=== PATIENT | male | born 1960 | race Caucasian/White ===

== ENCOUNTER 2021-01-12 08:30 | Outpatient (RCR) | payer OTHER, SELFPAY ==
[2020-10-25 11:48] VITALS: BP 142/74; PULSE 59; O2SAT 99
[2020-10-25 12:18] VITALS: PULSE 54
--- NOTE | 2020-11-10 07:54 | PCCPR ---
Received release for Eliezer to return to rehab after liver ablation, however, his father last night and he will be absent this week. Plans to return next week.
--- NOTE | 2020-11-15 08:20 | PCCPR ---
Patient called to cancel for the week as he's in [place] handling his father's and affairs. Patient states he'll resume his sessions the following week.
--- NOTE | 2020-11-25 07:53 | PCCPR ---
Eliezer absent today, not feeling well.
--- NOTE | 2021-01-13 07:44 | PCCPR ---
Addendum entered by Betty Telles RN 01/17/21 08:09: Mingo went to ED after his last visit. Found to have cellulitis and a new ulcer. He was sent home on oral antibiotics. He has an apt with his Phone Representative on 01/19/21 and will update us if he will be able to return during this process. Original Note: Absent due to hospitalization Mingo's called this AM states he is in the hospital. No reason given.
--- NOTE | 2021-01-20 11:29 | PCCPR ---
Spoke with Mingo today, he stated that he will be no weight bearing for next two weeks and unable to exercise. Mingo stated that he would like to finish his sessions but unsure when he will be able to exercise again. Placed on hold for now and will follow up in three weeks.
--- NOTE | 2021-01-31 09:22 | PCCPR ---
Hospitalized called this am to let us know Mingo is back in the hospital for cellulitis. States he was home briefly. Explained we have him on hold so once released per his MD to return we can re assign a new class time.
--- NOTE | 2021-02-17 11:47 | PCCPR ---
Spoke with Mingo, he is still [facility]. Seeing his nematologist weekly in regards to the cellulitis and wounds on his foot. He is unsure on a return date but will keep us posted.
== END 2021-01-12 23:59 | disposition home or self-care (01) ==
LOC: ANHCPREHAB 08:30
PROVIDERS: PCP Family Medicine
DX: Z95.5 Presence of coronary angioplasty implant and graft (principal)
CPT/HCPCS: 93798

== ENCOUNTER 2021-01-12 13:59 | Observation (INO) | payer OTHER, SELFPAY ==
--- NOTE | ~2021-01-12 | US_ITS ---
EXAMINATION: US venous doppler [facility] DATE: 01/12/2021 14:39 INDICATION: Left lower limb swelling. TECHNIQUE: Grayscale ultrasound images without and with compression and Doppler ultrasound images of the left lower extremity veins were obtained. COMPARISON: None. FINDINGS: The visualized portions of left common femoral vein, profunda (deep) femoral vein, femoral vein, popl iteal vein, peroneal veins, posterior tibial veins, and greater saphenous vein outflow are patent. IMPRESSION: 1. No deep venous thrombosis. Reviewed, dictated and finalized at location A.
--- NOTE | ~2021-01-12 | XR_ITS ---
XR ankle LT min 3V, XR foot LT min 3V 01/12/2021 16:01 Indication: Left foot and ankle pain and swelling Procedure: 4 views left ankle and 4 views left foot Comparison: 06/30/2016 Findings: There are surgical changes in the first metatarsal and the lateral aspect of the calcaneus. Status post amputation of the second toe at the MTP joint. Severe osteoarthritis of the first MTP michele int with hallux valgus. There are degenerative calcaneal enthesophytes. There is extensive arterial c alcification. Impression: 1: No acute bone or joint abnormality. Reviewed, dictated and finalized at location A. Impression: 1: No acute bone or joint abnormality. Impression: 1: No acute bone or joint abnormality.
[2021-01-12 14:16] VITALS: BP 151/84; PULSE 77; RESP 16; TEMP 36.8; O2SAT 99
[2021-01-12 14:45] LABS: Basophils Percent Auto 0.4 % (0.2-1.2); Eosinophils Absolute Auto 0.1 K/mm3 (0-0.3); Eosinophils Percent Auto 1.7 % (0-4.4); Hematocrit 35.6 % (42.0-52.0); Hemoglobin 11.8 g/dL (14.0-18.0); Immature Granulocyte Absolute 0.01 K/mm3 (0.00-0.031); Immature Granulocyte Percent A 0.2 % (0-0.5); Immature Platelet Fraction Pct 7.1 % (0.9-11.2); Mean Corpuscular HGB Conc 33.1 g/dl (32-36); Mean Corpuscular Hemoglobin 30.2 pg (26-34); Mean Platelet Volume 11.6 fl (7.4-10.4); Monocytes Absolute Auto 0.5 K/mm3 (0.1-0.6); Monocytes Percent Auto 9.5 % (2.6-8.5); Neutrophils Percent Auto 75.2 % (45.5-73.1); Platelet Count Result 115 k/mm3 (150-375); Red Blood Count 3.91 M/mm3 (4.6-6.20); Red Cell Distribution Width 12.8 % (11.5-14.5); White Blood Count 5.4 K/mm3 (4.5-10.0)
[2021-01-12 14:57] LABS: Alanine Aminotransferase 21 U/L (4-50); Albumin Level 3.8 g/dL (3.5-5.1); Alkaline Phosphatase 91 U/L (38-126); Anion Gap 5 mmol/L (8-16); Aspartate Amino Transferase 28 U/L (17-59); Bilirubin,Total 0.6 mg/dL (0.2-1.3); Blood Urea Nitrogen 15 mg/dL (9-20); Calcium 8.9 mg/dL (8.4-10.2); Carbon Dioxide 27 mmol/L (22-30); Chloride 100 mmol/L (98-107); Estimated CRCL calculation 73 ml/min; Estimated Glomerular Filt Rate > 60; Glucose 106 mg/dL (65-110); Potassium 4.4 mmol/L (3.4-5.0); Sodium 132 mmol/L (137-145)
--- NOTE | 2021-01-12 15:14 | ED.SKABFB ---
HPI - Skin/Abscess/Foreign Bdy General Chief complaint: Skin/Abscess/Foreign Body Stated complaint: Redness and swelling LLle Time Seen by Provider: 01/12/21 15:12 Source: patient Mode of arrival: ambulatory Limitations: no limitations History of Present Illness HPI narrative: Patient is a 60-year-old male with a history of peripheral arterial disease, type 2 diabetes, hypertension, who presents for evaluation of rash and throbbing pain to the left lower extremity. Patient states that he noticed a small area of redness near his left foot this morning, which has progressed to a larger area of redness and warmth overlying the ankle. Patient is able to move the joint and does not endorse much pain but also states that he has a history of neuropathy and does not have good sensation in his lower extremity. He does have a history of chronic toe ulcers that are being monitored by wound care. Patient did go to cardiac rehabilitation today where he was able to complete his treatment. Patient denies any fever, chills, nausea or vomiting. No recent fall or injury. He denies history of skin infection in the past. Related Data Home Medications Medication Instructions Recorded Confirmed aspirin 81 mg tablet,delayed 81 mg PO DAILY 09/30/20 09/30/20 release atorvastatin 80 mg tablet 80 mg PO DAILY 09/30/20 09/30/20 cholecalciferol (vitamin D3) 125 125 mcg PO DAILY 09/30/20 09/30/20 mcg (5,000 unit) capsule citalopram 10 mg tablet 10 mg PO DAILY 09/30/20 09/30/20 erythromycin with ethanol 2 % 1 applic TOPICAL BID 09/30/20 09/30/20 topical solution gabapentin 300 mg capsule 600 mg PO QID 09/30/20 09/30/20 ibuprofen 200 mg capsule 800 mg PO Q6H PRN 09/30/20 10/25/20 lactulose 10 gram/15 mL (15 mL) 10 g PO QAM 09/30/20 10/25/20 oral solution levothyroxine 25 mcg capsule 25 mcg PO DAILY 09/30/20 09/30/20 lisinopril 40 mg tablet 40 mg PO DAILY 09/30/20 09/30/20 metoprolol tartrate 25 mg tablet 25 mg PO BID 09/30/20 09/30/20 tramadol 50 mg tablet 50 mg PO Q6H PRN 09/30/20 09/30/20 cholecalciferol (vitamin D3) 125 mcg PO DAILY 10/25/20 10/25/20 pantoprazole 20 mg PO BID 10/25/20 10/25/20 tamsulosin 0.4 mg PO DAILY 10/25/20 10/25/20 Allergies Allergy/AdvReac Type Severity Reaction Status Date / Time No Known Allergies Allergy Verified 01/12/21 15:02 Review of Systems Review of Systems: CONSTITUTIONAL: Denies fever, chills, or sweats. EYES: Denies visual changes, redness, or discharge. ENT: Denies rhinorrhea, congestion, sore throat, or otalgia. CARDIOVASCULAR: Denies chest pain, palpitations, or edema. RESPIRATORY: Denies cough or dyspnea. GASTROINTESTINAL: Denies abdominal pain, nausea, vomiting, or diarrhea. GENITOURINARY: Denies dysuria or hematuria. SKIN: Reports redness to the left ankle, reports ulcerations to the left great toe, left fourth and fifth toes MUSCULOSKELETAL: Denies back pain, reports throbbing pain to the left ankle and foot NEUROLOGIC: Denies headache, numbness, or weakness. [facility] Past Medical History Medical History (Updated 01/12/21 @ 17:02 by Jenifer Suarez MD) Arthritis Diabetes Heart disease Hypertension Subjective tinnitus of both ears TIA (transient ischemic attack) Family History Family History (Reviewed 09/30/20 @ 08:38 by Kassandra Gilmore [facility]) Mother Alcoholism Cancer Hypertension Sibling Hypertension Grandparent Alcoholism Social History Social History Smoking status: Never smoker Alcohol intake: never Substance use: never Substance use type: does not use Exam Narrative: GENERAL: Awake, alert, conversant HEAD: Normocephalic, atraumatic. EYES: 2+ PERRLA and EOMI. ENT: Nares clear, no rhinorrhea or epistaxis. Mucous membranes moist. NECK: Supple. CHEST: No respiratory distress, breathing even and non labored HEART: Regular rate, sinus rhythm ABDOMEN:Non distended, non tender EXTREMITIES: Normal range of
[2021-01-12 16:45] LABS: CRP 1.6 mg/dL (<1.0)
--- NOTE | 2021-01-12 16:45 | PM.IMHP ---
H&P: HPI History of Present Illness Date/Time: 01/12/21 16:45 Chief Complaint: Redness and swelling of the left foot and leg. Narrative: This is a very pleasant 60-year-old male with history of coronary artery disease, type 2 diabetes, hypertension, hypothyroidism, cirrhosis, and hepatocellular carcinoma on liver transplant list at [facility] who presented to the emergency department earlier today via private vehicle for evaluation of redness and swelling of the left foot and leg. He follows with a local shipping and receiving coordinator for a wound in the left 4th and 5th toe webspaces as well as a pressure ulcer on the left 1st toe. This morning when he awoke he noticed that the 5th left toe was swollen and red with redness extending onto the dorsum of the foot and up the medial calf. He has significant neuropathy in the lower legs below the knees and thus has no discomfort. He denies fever, chills, sweats, nausea, and vomiting. He has no history of multidrug resistant organisms. Review of Systems Review of Systems: Twelve systems were reviewed with pertinent positives and negatives as per HPI. No fever, chills, or sweats. No recent cold or flu symptoms. He denies chest pain shortness of breath. No cough. No nausea, vomiting, or diarrhea. No dysuria. His most recent hemoglobin A1c was well within normal limits and he has been off of his diabetes medications losing 25 lb. Except as documented, all other systems were reviewed and are negative. [facility] Past Medical History Medical History (Updated 01/12/21 @ 23:09 by Shelbie Donovan PA-C) Arthritis Cirrhosis of liver Coronary artery disease Status post stent x1. Diet-controlled type 2 diabetes mellitus Hepatocellular carcinoma Status post radiofrequency ablation x3. On liver transplant list at [facility]. Hypertension Neuropathy Osteomyelitis Transient ischemic attack Surgical History Surgical History (Updated 01/12/21 @ 23:02 by Shelbie Donovan PA-C) Amputation of toe of left foot Left 2nd toe due to osteomyelitis. 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 Status post right foot surgery Multiple surgeries of the right foot related to osteomyelitis. Family History Family History Mother Alcoholism Cancer Hypertension Sibling Hypertension Grandparent Alcoholism Social History Social History (Updated 01/12/21 @ 23:03 by Shelbie Donovan PA-C) Social History: Surrogate decision maker: Augustine Corrales, significant other. Code status: Full code. Smoking status: Never smoker Second hand tobacco smoke exposure: No Alcohol intake: former Substance use: never Living arrangements: with family Additional living arrangements comments: The patient lives in [place]. Occupation/Education: unemployed Additional occupation/education comments: Disabled. Meds Home Medications and Allergies Home Medications Medication Instructions Recorded Confirmed Type aspirin 81 mg tablet,delayed 81 mg PO DAILY 09/30/20 01/12/21 History release atorvastatin 80 mg tablet 80 mg PO HS 09/30/20 01/12/21 History cholecalciferol (vitamin D3) 125 125 mcg PO DAILY 09/30/20 01/12/21 History mcg (5,000 unit) capsule citalopram 10 mg tablet 10 mg PO DAILY 09/30/20 01/12/21 History erythromycin with ethanol 2 % 1 applic TOPICAL DAILY 09/30/20 01/12/21 History topical solution gabapentin 300 mg capsule 600 mg PO QID 09/30/20 01/12/21 History ibuprofen 200 mg capsule 800 mg PO Q6H PRN 09/30/20 01/12/21 History lactulose 10 gram/15 mL (15 mL) 10 g PO QAM 09/30/20 01/12/21 History oral solution levothyroxine 25 mcg capsule 25 mcg PO DAILY 09/30/20 01/12/21 History lisinopril 40 mg tablet 40 mg PO DAILY 09/30/20 01/12/21 History metoprolol tartrate 25 mg tablet 25 mg PO BID 09/30/20 01/12/21
[2021-01-12 16:58] LABS: Erythrocyte Sedimentation Rate 34 mm/hr (0-20)
[2021-01-12 17:26] VITALS: BP 154/75; PULSE 73; RESP 18; TEMP 36.7; O2SAT 100
[2021-01-12 18:50] VITALS: BMI 35.9
[2021-01-12 20:15] VITALS: BP 130/61; PULSE 72; RESP 18; TEMP 36.7; O2SAT 97
--- NOTE | 2021-01-12 20:24 | ADMGEN ---
This patient, Eliezer De La Torre, was admitted to [facility]. Patient/family oriented to hospital policies and general routines including ID bracelet, bed and alarms, visiting hours, pain management, procedures, bathroom and other care routines, personal items, smoking policy, room service/diet, and visiting hours. Information on how to activate the Rapid Response Team has been discussed. Patient/Family are encouraged to report perceived risks to care and to ask questions if they do not understand what they are told or what they should do.
[2021-01-12] MEDS: GABAPENTIN 300 MG CAPSULE 600 MG PO (23:27)
[2021-01-12] MEDS: ATORVASTATIN 40 MG TABLET 80 MG PO (23:27)
[2021-01-12 23:28] VITALS: PULSE 80
[2021-01-12] MEDS: METOPROLOL TARTRATE 25 MG TABLET PO (23:28)
[2021-01-12] MEDS: traMADol HCL (*CRX) 50 MG TABLET PO ×2 (23:32→23:35)
[2021-01-13] VITALS (7 sets, daily range): BP systolic 120–145; BP diastolic 65–73; PULSE 63–68; RESP 14–16; TEMP 36.2–36.8; O2SAT 94–99
--- NOTE | 2021-01-13 04:43 | PC.NURSE ---
RN contacted TRENA Justin at 2022 and left a message stating, I reconciled home medications for patient and he is needing his gabapentin and tramadol. RN never received orders for restarting home meds and accidentally called TRENA Justin at 2224 and she stated, I never received your message. I'm sorry my phone is messed up. I will restart his home meds in about 10-15 min, thanks.
[2021-01-13] MEDS: LEVOTHYROXINE SODIUM 25 MCG TABLET PO (06:02)
[2021-01-13] MEDS: traMADol HCL (*CRX) 50 MG TABLET 100 MG PO ×2 (06:03→17:20)
[2021-01-13 06:57] LABS: Hematocrit 34.5 % (42.0-52.0); Hemoglobin 11.4 g/dL (14.0-18.0); Immature Platelet Fraction Pct 6.5 % (0.9-11.2); Mean Corpuscular Hemoglobin 30.7 pg (26-34); Mean Platelet Volume 11.3 fl (7.4-10.4); Platelet Count Result 122 k/mm3 (150-375); Red Blood Count 3.71 M/mm3 (4.6-6.20); White Blood Count 5.9 K/mm3 (4.5-10.0)
[2021-01-13 07:16] LABS: Anion Gap 6 mmol/L (8-16); Blood Urea Nitrogen 15 mg/dL (9-20); Calcium 8.6 mg/dL (8.4-10.2); Carbon Dioxide 25 mmol/L (22-30); Chloride 101 mmol/L (98-107); Estimated CRCL calculation 80 ml/min; Estimated Glomerular Filt Rate > 60; Glucose 140 mg/dL (65-110); Magnesium 1.6 mg/dL (1.6-2.3); Sodium 132 mmol/L (137-145)
[2021-01-13 07:44] LABS: Hemoglobin A1C 4.9 % (<5.7)
[2021-01-13] MEDS: ASPIRIN 81 MG ENTERIC TABLET PO (08:46)
[2021-01-13] MEDS: CITALOPRAM HYDROBROMIDE 10 MG TABLET PO (08:46)
[2021-01-13] MEDS: CHOLECALCIFEROL 1,000 UNITS TABLET 5000 UNITS PO (08:46)
[2021-01-13] MEDS: lisinopriL 20 MG TABLET 40 MG PO (08:47)
[2021-01-13] MEDS: GABAPENTIN 300 MG CAPSULE 600 MG PO ×4 (08:47→20:39)
[2021-01-13] MEDS: METOPROLOL TARTRATE 25 MG TABLET PO ×2 (08:47→20:39)
[2021-01-13] MEDS: PANTOPRAZOLE 40 MG TABLET PO (08:47)
[2021-01-13] MEDS: LACTULOSE 20 GM/30 ML UDC 10 GM PO (10:47)
--- NOTE | 2021-01-13 15:42 | PM.IMPN ---
Progress Note: A&P Assessment and Plan (1) Cellulitis of left toe: Code(s): L03.032 - Cellulitis of left toe Status: Acute (2) Cellulitis of left foot: Code(s): L03.116 - Cellulitis of left lower limb Status: Acute Assessment and Plan: Continue vancomycin and imipenem Elevated LLE He is followed by a local nanny/household manager and will need to follow-up with him on discharge Wound care nurse consult (3) Diabetic foot ulcer: Code(s): E11.621 - Type 2 diabetes mellitus with foot ulcer; L97.509 - Non-pressure chronic ulcer of other part of unspecified foot with unspecified severity Status: Acute Assessment and Plan: Treatment as above (4) Diet-controlled type 2 diabetes mellitus: Code(s): E11.9 - Type 2 diabetes mellitus without complications Status: Acute Assessment and Plan: Controlled No home meds (5) Hypertension: Code(s): I10 - Essential (primary) hypertension Status: Acute Assessment and Plan: Stable Continue home meds Monitor (6) Coronary artery disease: Code(s): I25.10 - Atherosclerotic heart disease of [place] coronary artery without angina pectoris Status: Acute Assessment and Plan: Stable Resume ASA, statin Followed by cardiology at [facility] (7) Neuropathy: Code(s): G62.9 - Polyneuropathy, unspecified Status: Acute Assessment and Plan: Continue gabapentin (8) Hypothyroidism: Code(s): E03.9 - Hypothyroidism, unspecified Status: Acute Additional Plan Full code Subjective Date/time seen: 01/13/21 15:42 Interval history: Pt seen and evaluated; labs, VS, diagnostic reports reviewed; no acute events overnight Review of Systems Review of Systems: All systems reviewed & are unremarkable except as noted in HPI and below Exam Narrative: General: Well-developed, well-nourished, no acute distress. HEENT:EOMI. Sclerae anicteric. Oral mucosa moist. Neck: Supple. Respiratory: Lungs are clear to auscultation bilaterally. Cardiovascular: Regular rate and rhythm with S1-S2. Gastrointestinal: Abdomen is soft, nontender, and nondistended with positive bowel sounds. Skin: Warm and dry. Erythema and edema of the left 5th toe with erythema extending onto the dorsum of the foot and streaking medially up the right calf approximately fpc. There is a pressure ulcer on the medial aspect of the left 5th toe with a small amount of serosanguineous and slightly purulent drainage. There is a pressure ulcer on the medial left 1st metatarsophalangeal joint. Extremities: No cyanosis or clubbing. Mild edema of the left foot and lower leg. Neurological: Alert. Cranial nerves 2-12 are grossly intact. Sensation in the lower legs is significantly diminished bilaterally. No gross focal deficits to casual conversation. Psychiatric: Pleasant and cooperative with normal mood and affect. Judgment and insight intact. Objective Data Vital Signs Vital Signs: Vital Signs - 24 hr 01/12/21 17:26 01/12/21 20:15 01/12/21 23:28 Temperature 36.7 C 36.7 C Pulse Rate 73 72 80 Respiratory Rate 18 18 Blood Pressure 154/75 H 130/61 Pulse Oximetry 100 97 01/13/21 05:37 01/13/21 08:00 01/13/21 08:47 Temperature 36.2 C L 36.4 C L Pulse Rate 67 64 64 Respiratory Rate 14 16 Blood Pressure 130/65 120/65 Pulse Oximetry 94 97 01/13/21 13:46 Temperature 36.4 C Pulse Rate 68 Respiratory Rate 16 Blood Pressure 145/70 H Pulse Oximetry 98 Intake/Output Intake/Output: Intake & Output 01/10/21 01/11/21 01/12/21 01/13/21 23:59 23:59 23:59 23:59 Intake Total 100 830 Output Total 600 Balance 100 230 Meds/Results Medications: Active Medications Generic Name Dose Route Start Last Admin Trade Name Freq PRN Reason Stop Dose Admin Aspirin 81 mg 01/13/21 09:00 01/13/21 08:46 Aspirin 81 Mg Enteric Tablet PO 81 mg DAILY PAULA Administration Atorvastatin Calcium 8
[2021-01-13 17:19] LABS: Glucose Point of Care 126 mg/dl (65-105)
[2021-01-13] MEDS: ATORVASTATIN 40 MG TABLET 80 MG PO (20:39)
[2021-01-13] MEDS: TAMSULOSIN HCL 0.4 MG CAPSULE PO (20:39)
[2021-01-13 21:53] LABS: Glucose Point of Care 116 mg/dl (65-105)
[2021-01-14 04:00] VITALS: BP 130/68; PULSE 74; RESP 16; TEMP 36.1; O2SAT 99
[2021-01-14 05:16] LABS: Glucose Point of Care 113 mg/dl (65-105)
[2021-01-14] MEDS: LEVOTHYROXINE SODIUM 25 MCG TABLET PO (05:32)
[2021-01-14] MEDS: traMADol HCL (*CRX) 50 MG TABLET 100 MG PO (06:41)
[2021-01-14 07:04] LABS: Estimated CRCL calculation 68 ml/min; Estimated Glomerular Filt Rate 56
[2021-01-14 07:44] VITALS: BP 113/59; PULSE 60; RESP 16; TEMP 36.5; O2SAT 97
[2021-01-14 07:48] LABS: Vancomycin Trough 20.4 ug/mL (10.0-20.0)
--- NOTE | 2021-01-14 08:34 | PC.NURSE ---
WOUND CARE NURSES HERE TO EVALUATE L. FOOT WOUND.
--- NOTE | 2021-01-14 10:21 | PC.NURSE ---
LINK DIXON HERE TO SEE PT AT BEDSIDE.
[2021-01-14] MEDS: CHOLECALCIFEROL 1,000 UNITS TABLET 5000 UNITS PO (10:22)
[2021-01-14] MEDS: ASPIRIN 81 MG ENTERIC TABLET PO (10:22)
[2021-01-14] MEDS: CITALOPRAM HYDROBROMIDE 10 MG TABLET PO (10:23)
[2021-01-14] MEDS: GABAPENTIN 300 MG CAPSULE 600 MG PO ×2 (10:24→12:52)
[2021-01-14] MEDS: lisinopriL 20 MG TABLET 40 MG PO (10:24)
[2021-01-14 10:25] VITALS: PULSE 60
[2021-01-14] MEDS: METOPROLOL TARTRATE 25 MG TABLET PO (10:25)
[2021-01-14] MEDS: PANTOPRAZOLE 40 MG TABLET PO (10:26)
[2021-01-14 11:23] LABS: Glucose Point of Care 142 mg/dl (65-105)
--- NOTE | 2021-01-14 16:05 | PC.NURSE ---
DISCHARGED HOME, OUT VIA WC TO SIGNIFICANT OTHER'S WAITING CAR WITH ALL PERSONAL BELONGINGS AND DISCHARGE PACKET. VOICES NO C/O. NO DISTRESS NOTED.
--- NOTE | 2021-01-14 16:07 | PM.DS ---
DS: Admitting Diagnosis Discharge Date 01/14/2021 Admitting Diagnosis Cellulitis of left lower limb DS: Discharge Diagnosis Discharge Diagnosis (1) Cellulitis of left toe: Code(s): L03.032 - Cellulitis of left toe Status: Acute (2) Cellulitis of left foot: Code(s): L03.116 - Cellulitis of left lower limb Status: Acute Assessment and Plan: Continue vancomycin and imipenem Elevated LLE He is followed by a local net mobile developer and will need to follow-up with him on discharge Wound care nurse consult (3) Diabetic foot ulcer: Code(s): E11.621 - Type 2 diabetes mellitus with foot ulcer; L97.509 - Non-pressure chronic ulcer of other part of unspecified foot with unspecified severity Status: Acute Assessment and Plan: Treatment as above (4) Diet-controlled type 2 diabetes mellitus: Code(s): E11.9 - Type 2 diabetes mellitus without complications Status: Acute Assessment and Plan: Controlled No home meds (5) Hypertension: Code(s): I10 - Essential (primary) hypertension Status: Acute Assessment and Plan: Stable Continue home meds Monitor (6) Coronary artery disease: Code(s): I25.10 - Atherosclerotic heart disease of [place] coronary artery without angina pectoris Status: Acute Assessment and Plan: Stable Resume ASA, statin Followed by cardiology at [facility] (7) Neuropathy: Code(s): G62.9 - Polyneuropathy, unspecified Status: Acute Assessment and Plan: Continue gabapentin (8) Hypothyroidism: Code(s): E03.9 - Hypothyroidism, unspecified Status: Acute DS: Summary Hospital Course Hospital Course: Mr. De La Torre is a 60 year old man with a PM coronary artery disease, type 2 diabetes, hypertension, hypothyroidism, cirrhosis, and hepatocellular carcinoma on liver transplant list at [facility]. He presented to the emergency department earlier today via private vehicle for evaluation of redness and swelling of the left foot and leg. He follows with a local net mobile developer for a wound in the left 4th and 5th toe webspaces as well as a pressure ulcer on the left 1st toe. On day of admission, he noticed that the 5th left toe was swollen and red with redness extending onto the dorsum of the foot and up the medial calf. He has significant neuropathy in the lower legs below the knees and thus has no discomfort. He denied fever, chills, sweats, nausea, and vomiting. He has no history of multidrug resistant organisms. Given his complicated medical history and lymphangitic streaking it was thought best that he be admitted for IV antibiotics at least overnight. Vancomycin and imipenem per antibiotic stewardship recommendations were initiated. He was encouraged him to elevate the affected extremity. The cellulitis is improving and the patient is clinically stable for discharge. Wound care nurse was consulted and recommended mepilex ag foam and to cushion and protect wound to 5th toe. He will need to follow-up with podiatry on discharge.He will be discharged on oral antibiotics and has been advised to follow up with his PCP within 2 weeks. Time Spent with Patient Time attestation: Total time spent providing and/or coordinating discharge services: Time spent: Greater than 30 minutes DS: Data Data Completed and Pending Labs on day of discharge: Labs from last 24 hours 01/14/21 01/14/21 01/14/21 11:20 06:34 06:34 Creatinine 1.30 Estim Creat Clear Calc 68 Estimated GFR 56 L POC Capillary Glucose 142 H Vancomycin Trough 20.4 H 01/14/21 01/13/21 01/13/21 05:12 21:50 17:14 Creatinine Estim Creat Clear Calc Estimated GFR POC Capillary Glucose 113 H 116 H 126 H Vancomycin Trough Discharge Plan Discharge Attending physician on discharge: Behzad Vera Discharging Clinician: Guerita Maher Patient Disposition: Home, Self-Care Activity: as tolerated Diet:
== END 2021-01-14 16:05 | disposition home or self-care (01) ==
LOC: ANHED 17:02 → ANHCPC 21:37
PROVIDERS: Emergency Medicine Emergency Medical Services; Physician Assistant; Admitting Provider Hospitalist; Emergency Provider Emergency Medicine; PCP Family Medicine; Visit Provider Internal Medicine Nephrology
DX: E11.621 Type 2 diabetes mellitus with foot ulcer (principal); L97.528 Non-pressure chronic ulcer of other part of left foot with other specified severity; L03.032 Cellulitis of left toe; L03.116 Cellulitis of left lower limb; I25.10 Atherosclerotic heart disease of native coronary artery without angina pectoris; I10 Essential (primary) hypertension; E03.9 Hypothyroidism, unspecified; K74.60 Unspecified cirrhosis of liver; E11.42 Type 2 diabetes mellitus with diabetic polyneuropathy; M79.89 Other specified soft tissue disorders
CPT/HCPCS: 36415; 73610; 73630; 80048; 80053; 80202; 82565; 82948; 83036; 83735; 84443; 85025; 85027; 85055; 85652; 86140; 93971; 96365; 96366; 96367; 96375; 96376; 99285; A9270; G0378; G0379; J0743; J3370

== ENCOUNTER 2021-01-28 14:24 | Inpatient (IN) | payer OTHER, SELFPAY ==
[2021-01-28] VITALS (19 sets, daily range): BP systolic 144–159; BP diastolic 69–80; PULSE 72–102; RESP 16–18; TEMP 37.6–38.2; O2SAT 95–100; BMI 34.9
--- NOTE | ~2021-01-28 | US_ITS ---
EXAMINATION: US venous doppler [facility] EXAM DATE: 01/29/2021 09:07 INDICATION: Left leg swelling. TECHNIQUE: Multiple grayscale, color flow and Doppler images of the left lower extremity deep venous system were obtained and reviewed. Comparison is made to prior examination from 01/12/2021. FINDINGS: The left common femoral, femoral and profunda veins demonstrate normal color flow, respirat ory variation, augmentation and compressibility. Compressibility, color flow confirmed within the le ft popliteal, posterior tibial, peroneal, and greater saphenous veins. There is left inguinal lymph node measuring 3.2 x 1.5 x 2.3 cm, with fatty hilum. This is most likely reactive but recommend clini lolita follow-up. IMPRESSION: 1. No left lower extremity deep venous thrombosis. 2. Left inguinal lymphadenopathy probably reactive but recommend clinical follow-up. Reviewed, dictated and finalized at location A. IMPRESSION: 1. No left lower extremity deep venous thrombosis. 2. Left inguinal lymphadenopathy probably reactive but recommend clinical foll ow-up.
--- NOTE | ~2021-01-28 | XR_ITS ---
EXAMINATION: XR foot LT min 3V EXAM DATE: 01/31/2021 16:16 INDICATION: Left foot wound. Rule out osteomyelitis. TECHNIQUE: Left foot dorsoplantar, lateral and oblique projections obtained and reviewed. Comparison is made to prior examination from 01/12/2021. FINDINGS: There is calcaneal plate with supporting screws bridging what appears to be a healed osteot rhona or fracture. Also plate and supporting screws in the 1st metatarsal bone. There is severe left 1s t metatarsophalangeal joint hallux valgus and osteoarthritis. Probable changes of bunionectomy. There is swelling over the metatarsophalangeal joint medially and probable ulceration with overlying scott ge. There is no evidence of erosive change at the 1st metatarsal head, no radiographic evidence of os teomyelitis. 2nd toe has been amputated. There are no acute fractures identified. There are arterial calcifications, arteriosclerosis. IMPRESSION: Soft tissue swelling. Chronic left foot findings unchanged. Reviewed, dictated and finalized at location A.
[2021-01-28 16:23] LABS: Basophils Percent Auto 0.2 % (0.2-1.2); Eosinophils Absolute Auto 0.1 K/mm3 (0-0.3); Eosinophils Percent Auto 0.7 % (0-4.4); Hematocrit 38.8 % (42.0-52.0); Hemoglobin 12.8 g/dL (14.0-18.0); Immature Granulocyte Absolute 0.03 K/mm3 (0.00-0.031); Immature Granulocyte Percent A 0.4 % (0-0.5); Immature Platelet Fraction Pct 8.1 % (0.9-11.2); Lymphocytes Absolute Auto 0.42 K/mm3 (0.9-3.2); Lymphocytes Percent Auto 5.1 % (18.3-44.2); Mean Corpuscular Hemoglobin 30.8 pg (26-34); Mean Corpuscular Volume 93.3 fl (80-100); Mean Platelet Volume 11.5 fl (7.4-10.4); Monocytes Absolute Auto 0.6 K/mm3 (0.1-0.6); Monocytes Percent Auto 6.9 % (2.6-8.5); Neutrophils Absolute Auto 7.2 K/mm3 (1.3-6.7); Neutrophils Percent Auto 86.7 % (45.5-73.1); Platelet Count Result 122 k/mm3 (150-375); Red Blood Count 4.16 M/mm3 (4.6-6.20); White Blood Count 8.3 K/mm3 (4.5-10.0)
[2021-01-28 16:32] LABS: Anion Gap 9 mmol/L (8-16); Blood Urea Nitrogen 14 mg/dL (9-20); Calcium 9.1 mg/dL (8.4-10.2); Carbon Dioxide 28 mmol/L (22-30); Chloride 96 mmol/L (98-107); Estimated CRCL calculation 74 ml/min; Estimated Glomerular Filt Rate > 60; Glucose 107 mg/dL (65-110); Sodium 133 mmol/L (137-145)
[2021-01-28 19:24] LABS: Alanine Aminotransferase 18 U/L (4-50); Albumin Level 4.1 g/dL (3.5-5.1); Alkaline Phosphatase 117 U/L (38-126); Anion Gap 10 mmol/L (8-16); Aspartate Amino Transferase 25 U/L (17-59); Bilirubin,Total 1.4 mg/dL (0.2-1.3); Blood Urea Nitrogen 15 mg/dL (9-20); CRP 5.6 mg/dL (<1.0); Calcium 8.9 mg/dL (8.4-10.2); Carbon Dioxide 23 mmol/L (22-30); Chloride 99 mmol/L (98-107); Estimated CRCL calculation 81 ml/min; Estimated Glomerular Filt Rate > 60; Glucose 106 mg/dL (65-110); Potassium 4.7 mmol/L (3.4-5.0); Sodium 132 mmol/L (137-145)
--- NOTE | 2021-01-28 19:27 | ED.SKABFB ---
HPI - Skin/Abscess/Foreign Bdy General Chief complaint: Skin/Abscess/Foreign Body Stated complaint: cellulitis Time Seen by Provider: 01/28/21 18:58 History of Present Illness HPI narrative: Patient is a 60-year-old male who presents ER with concerns for cellulitis to left lower extremity. Patient was diagnosed with cellulitis earlier this month related to a left fifth toe ulcer. He was discharged from this hospital with a course of doxycycline. He followed up with his gear repairer who started him on additional course of doxycycline. He been doing well until 2 days ago when he began to have recurrence of the redness of his foot and leg. Reports since yesterday and has progressed up his leg from the ankle to the mid ellis. It is warm and is causing aching that he can feel despite having neuropathy. No purulent drainage. He denies any chest pain or shortness of breath. He reports fevers of 101 ?F and higher. Related Data Home Medications Medication Instructions Recorded Confirmed aspirin 81 mg tablet,delayed 81 mg PO DAILY 09/30/20 01/12/21 release atorvastatin 80 mg tablet 80 mg PO HS 09/30/20 01/12/21 cholecalciferol (vitamin D3) 125 125 mcg PO DAILY 09/30/20 01/12/21 mcg (5,000 unit) capsule citalopram 10 mg tablet 10 mg PO DAILY 09/30/20 01/12/21 erythromycin with ethanol 2 % 1 applic TOPICAL DAILY 09/30/20 01/12/21 topical solution gabapentin 300 mg capsule 600 mg PO QID 09/30/20 01/12/21 ibuprofen 200 mg capsule 800 mg PO Q6H PRN 09/30/20 01/12/21 lactulose 10 gram/15 mL (15 mL) 10 g PO QAM 09/30/20 01/12/21 oral solution levothyroxine 25 mcg capsule 25 mcg PO DAILY 09/30/20 01/12/21 lisinopril 40 mg tablet 40 mg PO DAILY 09/30/20 01/12/21 metoprolol tartrate 25 mg tablet 25 mg PO BID 09/30/20 01/12/21 tramadol 50 mg tablet 100 mg PO Q6H 09/30/20 09/30/20 pantoprazole 40 mg PO DAILY 10/25/20 01/12/21 tamsulosin 0.4 mg PO DAILY 10/25/20 01/12/21 Allergies Allergy/AdvReac Type Severity Reaction Status Date / Time No Known Allergies Allergy Verified 01/28/21 18:53 Review of Systems Review of Systems: All systems reviewed & are unremarkable except as noted in HPI and below Constitutional: Constitutional: Denies chills, Reports fever(s) and Denies weakness Cardiovascular: Cardiovascular: Denies chest pain, Denies rapid heart rate and Denies radiating jaw, neck or arm pain Respiratory: Respiratory: Denies cough and Denies dyspnea Gastrointestinal: Gastrointestinal: Denies abdominal pain, Denies nausea and Denies vomiting Integumentary/Breasts: Skin/Breast: Denies pruritus, Reports erythema and Denies rash Comments: Dry flaking skin PMFSH Past Medical History Medical History (Updated 01/28/21 @ 20:39 by Petr Johnston MD) Arthritis BPH (benign prostatic hyperplasia) Cirrhosis of liver Coronary artery disease Status post stent x1. Diabetic peripheral neuropathy Diet-controlled type 2 diabetes mellitus 01/13/2021: hemoglobin A1c 4.9 Dyslipidemia Hepatocellular carcinoma Status post radiofrequency ablation x3. On liver transplant list at [facility]. Hypertension Hypothyroidism Osteomyelitis Transient ischemic attack Surgical History Surgical History Amputation of toe of left foot Left 2nd toe due to osteomyelitis. 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 Status post right foot surgery Multiple surgeries of the right foot related to osteomyelitis. Family History Family History Mother Alcoholism Cancer Hypertension Sibling Hypertension Grandparent Alcoholism Social History Social History (Updated 01/28/21 @ 19:57 by Leann Anne DO) Social History: Surrogate decision maker: Augustine Corrales, significant other. Code status: Fu
--- NOTE | 2021-01-28 19:41 | PC.NURSE ---
Pt has left foot deformity.
--- NOTE | 2021-01-28 19:55 | PM.IMHP ---
H&P: HPI History of Present Illness Date/Time: 01/28/21 21:15 Chief Complaint: Left leg cellulitis Narrative: 60-year-old male with past medical history of diet-controlled diabetes, alcoholic cirrhosis, hepatocellular carcinoma status post ablation x3, diabetic peripheral neuropathy, chronic foot wound to presented to the ER with recurrence of left lower extremity cellulitis. Patient was admitted to the hospital 01/12/2021 due to left lower extremity cellulitis and was discharged on the . He was discharged on course of doxycycline. He followed up with his control analyst to continued him on doxycycline which he has been taking as directed. However despite taking the doxycycline on the he started developing recurrence of the erythema of his left lower extremity. He reports that the erythema had completely resolved after his prior hospitalization. He had rapid development of erythema this time with some associated pain. He reports that he does not usually a pain in the extremity due to his neuropathy but the fact that he can not feel any pain makes him quite concerned. He has had associated fever up to 101.6 at home. He was febrile on presentation to the ER with a temperature of 100.7?. He has had associated rigors. He denies any nausea or vomiting. He has had a mild headache but he associated that to the stress of being in the ER. He has not noticed any drainage from his chronic foot wounds. He reports that his foot wounds have been slowly healing. He is supposed to have a surgery on his left foot to correct chronic deformities but they do not want to do the surgery until after his liver transplant. He did see his retail department manager today and had a booster for his hepatitis A vaccine. He has been on the liver transplant list at [facility] for about 18 months. He denies any a upper respiratory symptoms and is fully vaccinated against COVID-19. He is awaiting his Pfizer booster. He usually has to loose bowel movements a day due to his daily lactulose use. Review of Systems Review of Systems: 12 systems were reviewed with pertinent positives and negatives per HPI. Except as documented in the HPI, all other systems were reviewed and are negative. [facility] Past Medical History Medical History (Updated 01/28/21 @ 20:39 by Petr Johnston MD) Arthritis BPH (benign prostatic hyperplasia) Cirrhosis of liver Coronary artery disease Status post stent x1. Diabetic peripheral neuropathy Diet-controlled type 2 diabetes mellitus 01/13/2021: hemoglobin A1c 4.9 Dyslipidemia Hepatocellular carcinoma Status post radiofrequency ablation x3. On liver transplant list at [facility]. Hypertension Hypothyroidism Osteomyelitis Transient ischemic attack Surgical History Surgical History Amputation of toe of left foot Left 2nd toe due to osteomyelitis. 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 Status post right foot surgery Multiple surgeries of the right foot related to osteomyelitis. Family History Family History Mother Alcoholism Cancer Hypertension Sibling Hypertension Grandparent Alcoholism Social History Social History (Updated 01/28/21 @ 19:57 by Leann Anne DO) Social History: Surrogate decision maker: Augustine Corrales, significant other. Code status: Full code. Smoking status: Never smoker Second hand tobacco smoke exposure: No Alcohol intake: former Substance use: never Substance use type: does not use Additional living arrangements comments: The patient lives in [place]. Additional occupation/education comments: Disabled. Spiritual care concerns: No Meds Home Medications and Allergies Home Medications Medication Instructions Recorded
--- NOTE | 2021-01-28 20:33 | PC.NURSE ---
Orders for blood cultures not seen prior to starting abx for pt. This RN will draw now.
--- NOTE | 2021-01-28 20:50 | PC.NURSE ---
Vancomycin infusion paused. 1st set of bc drawn by this RN. 2nd set of bc drawn by electronic organ technician. Sent to lab and abx restarted by this RN.
--- NOTE | 2021-01-28 20:57 | PC.NURSE ---
Report to SONALI Flynn.
--- NOTE | 2021-01-28 21:05 | ADMGEN ---
This patient, Eliezer De La Torre, was admitted to Medical Room 249-01. Patient/family oriented to hospital policies and general routines including ID bracelet, bed and alarms, visiting hours, pain management, procedures, bathroom and other care routines, personal items, smoking policy, room service/diet, and visiting hours. Information on how to activate the Rapid Response Team has been discussed. Patient/Family are encouraged to report perceived risks to care and to ask questions if they do not understand what they are told or what they should do.
[2021-01-28] MEDS: SODIUM CHLORIDE 0.9% IV 1,000 ML 999 ML IV CONT (22:31)
[2021-01-28] MEDS: traMADol HCL (*CRX) 50 MG TABLET 100 MG PO (22:35)
[2021-01-28] MEDS: GABAPENTIN 300 MG CAPSULE 600 MG PO (23:44)
[2021-01-28] MEDS: ATORVASTATIN 40 MG TABLET 80 MG PO (23:45)
[2021-01-29] VITALS (9 sets, daily range): BP systolic 80–155; BP diastolic 42–69; PULSE 74–117; RESP 20–21; TEMP 36.7–37.7; O2SAT 98–100
[2021-01-29] MEDS: MORPHINE SULFATE (*CRX) 4 MG/ML INJ IV PUSH ×2 (01:17→22:53)
[2021-01-29] MEDS: SODIUM CHLORIDE 0.9% IV 1,000 ML 999 ML IV CONT (05:10)
[2021-01-29 05:22] LABS: Basophils Percent Auto 0.3 % (0.2-1.2); Eosinophils Percent Auto 0.1 % (0-4.4); Hematocrit 33.2 % (42.0-52.0); Hemoglobin 11.2 g/dL (14.0-18.0); Immature Granulocyte Absolute 0.05 K/mm3 (0.00-0.031); Immature Granulocyte Percent A 0.6 % (0-0.5); Immature Platelet Fraction Pct 7.9 % (0.9-11.2); Lymphocytes Absolute Auto 0.28 K/mm3 (0.9-3.2); Lymphocytes Percent Auto 3.6 % (18.3-44.2); Mean Corpuscular HGB Conc 33.7 g/dl (32-36); Mean Corpuscular Hemoglobin 31.2 pg (26-34); Mean Corpuscular Volume 92.5 fl (80-100); Mean Platelet Volume 11.7 fl (7.4-10.4); Monocytes Absolute Auto 0.3 K/mm3 (0.1-0.6); Monocytes Percent Auto 4.3 % (2.6-8.5); Neutrophils Absolute Auto 7.2 K/mm3 (1.3-6.7); Neutrophils Percent Auto 91.1 % (45.5-73.1); Platelet Count Result 110 k/mm3 (150-375); Red Blood Count 3.59 M/mm3 (4.6-6.20); Red Cell Distribution Width 13.2 % (11.5-14.5); White Blood Count 7.9 K/mm3 (4.5-10.0)
[2021-01-29 05:28] LABS: Lactic Acid Reflex 1.1 mmol/L (0.7-2.1)
[2021-01-29 05:29] LABS: Alanine Aminotransferase 15 U/L (4-50); Albumin Level 3.1 g/dL (3.5-5.1); Alkaline Phosphatase 80 U/L (38-126); Anion Gap 5 mmol/L (8-16); Aspartate Amino Transferase 24 U/L (17-59); Bilirubin,Total 2.3 mg/dL (0.2-1.3); Blood Urea Nitrogen 16 mg/dL (9-20); Calcium 8.3 mg/dL (8.4-10.2); Carbon Dioxide 27 mmol/L (22-30); Chloride 99 mmol/L (98-107); Estimated CRCL calculation 69 ml/min; Estimated Glomerular Filt Rate 56; Glucose 110 mg/dL (65-110); Potassium 4.6 mmol/L (3.4-5.0); Sodium 131 mmol/L (137-145)
[2021-01-29] MEDS: SODIUM CHLORIDE 0.9% IV 1,000 ML 150 ML IV CONT (06:09)
[2021-01-29] MEDS: LEVOTHYROXINE SODIUM 25 MCG TABLET PO (06:11)
[2021-01-29] MEDS: SODIUM CHLORIDE 0.9% IV 500 ML IV CONT (06:51)
[2021-01-29 07:56] LABS: Glucose Point of Care 91 mg/dl (65-105)
[2021-01-29] MEDS: ENOXAPARIN 40 MG/0.4 ML SYRINGE SUB-Q (08:34)
[2021-01-29] MEDS: LACTULOSE 20 GM/30 ML UDC 10 GM PO (08:34)
[2021-01-29] MEDS: GABAPENTIN 300 MG CAPSULE 600 MG PO ×4 (08:35→21:15)
[2021-01-29] MEDS: ASPIRIN 81 MG ENTERIC TABLET PO (08:35)
[2021-01-29] MEDS: PANTOPRAZOLE 40 MG TABLET PO (08:35)
[2021-01-29] MEDS: METOPROLOL TARTRATE 25 MG TABLET PO ×2 (08:35→21:16)
[2021-01-29] MEDS: CHOLECALCIFEROL 1,000 UNITS TABLET 5000 UNITS PO (08:36)
[2021-01-29] MEDS: TAMSULOSIN HCL 0.4 MG CAPSULE PO (08:36)
[2021-01-29] MEDS: CITALOPRAM HYDROBROMIDE 10 MG TABLET PO (08:36)
--- NOTE | 2021-01-29 09:32 | PM.IMPN ---
Progress Note: A&P Assessment and Plan (1) Cellulitis of left lower leg: Code(s): L03.116 - Cellulitis of left lower limb Status: Acute (2) Diet-controlled type 2 diabetes mellitus: Code(s): E11.9 - Type 2 diabetes mellitus without complications Status: Acute Assessment and Plan: Left lower extremity cellulitis with failure of outpatient treatment evident fly elevated bilirubin, increasing CRP and fever. Blood cultures are pending. (Blood cultures were drawn after antibiotic therapy.) Continue empiric antibiotic therapy with Primaxin and vancomycin. CBC and CMP have been ordered for a.m.. Diet-controlled diabetes mellitus (historically well controlled with hemoglobin A1c of 4.9). Patient is euglycemic. Will continue consistent carbohydrate diet will place patient on low-dose sliding scale insulin with Accu-Cheks a.c. HS and hypoglycemia protocol. Patient has been admitted as observation status. Additional Plan 01/29/21 afebrile WBCs WNL cont ADA diet cont NS 100cc /hr cont abx vanco/ imipenem BG goal accuchecks w LD ISS as needed Subjective Date/time seen: 01/29/21 09:32 pt doing ok reports redness and pain continue to LLE Exam Narrative: PHYSICAL EXAM: General: nontoxic appearing well-developed, obese HEENT: Mucous membranes are moist, no oral pharyngeal erythema, no scleral icterus Respiratory: Clear to auscultation bilaterally, no increased work of breathing Cardiovascular: Regular rate, regular rhythm, 1+ bilateral radial pedal pulses Gastrointestinal: Distended, nontender, normoactive bowel sounds, soft, globose Skin: Marked erythema to the left medial and anterior ellis, ulcers of the left foot and toes covered at time of my PE Musculoskeletal: Deformity of the left foot with lateral deviation of all the toes, ulcer to the base of the 1st metatarsal Neurological: Alert and oriented, speech is clear, no facial asymmetry Psychiatric: Appropriate mood and affect, pleasant and cooperative Objective Data Vital Signs Vital Signs: Vital Signs - 24 hr 01/28/21 15:15 01/28/21 16:24 01/28/21 18:56 Temperature 99.6 F 100.7 F H Pulse Rate 72 79 102 H Respiratory Rate 16 18 Blood Pressure 144/69 H 147/76 H Pulse Oximetry 99 100 97 01/28/21 18:57 01/28/21 19:11 01/28/21 19:15 Temperature Pulse Rate Respiratory Rate Blood Pressure 159/79 H Pulse Oximetry 98 96 01/28/21 19:16 01/28/21 19:30 01/28/21 19:32 Temperature Pulse Rate 97 Respiratory Rate 17 Blood Pressure 153/75 H 152/78 H Pulse Oximetry 95 97 97 01/28/21 19:33 01/28/21 19:45 01/28/21 19:46 Temperature Pulse Rate Respiratory Rate Blood Pressure 155/78 H Pulse Oximetry 97 96 96 01/28/21 20:00 01/28/21 20:02 01/28/21 20:15 Temperature Pulse Rate 81 Respiratory Rate 18 Blood Pressure 152/80 H Pulse Oximetry 97 97 97 01/28/21 20:17 01/28/21 20:30 01/28/21 20:32 Temperature Pulse Rate Respiratory Rate Blood Pressure 155/77 H 149/70 H Pulse Oximetry 97 97 01/28/21 20:45 01/29/21 00:00 01/29/21 04:46 Temperature 98.7 F Pulse Rate 117 H Respiratory Rate 21 H Blood Pressure 155/68 H 80/42 L Pulse Oximetry 99 100 01/29/21 06:20 01/29/21 06:25 01/29/21 08:35 Temperature 98.3 F Pulse Rate 104 H 91 Respiratory Rate 20 Blood Pressure 104/45 L 89/48 L Pulse Oximetry 98 Intake/Output Intake/Output: Intake & Output 01/26/21 01/27/21 01/28/21 01/29/21 23:59 23:59 23:59 23:59 Intake Total 1600 700 Balance 1600 700 Meds/Results Medications: Active Medications Generic Name Dose Route Start Last Admin Trade Name Robert PRN Reason Stop Dose Admin Aspirin 81 mg 01/29/21 09:00 01/29/21 08:35 Aspirin 81 Mg Enteric Tablet PO 81 mg DAILY PAULA Administration Atorvastatin Calcium 80 mg 01/28/21 23:15 01/28/21 23:45 Atorvastatin 40 Mg Tablet PO 80 mg HS PAULA Administration Najma
[2021-01-29] MEDS: lisinopriL 20 MG TABLET 40 MG PO (10:08)
[2021-01-29 12:06] LABS: Glucose Point of Care 88 mg/dl (65-105)
[2021-01-29] MEDS: SODIUM CHLORIDE 0.9% IV 1,000 ML 100 ML IV CONT (16:44)
[2021-01-29 17:22] LABS: Glucose Point of Care 97 mg/dl (65-105)
[2021-01-29] MEDS: traMADol HCL (*CRX) 50 MG TABLET 100 MG PO (19:13)
[2021-01-29] MEDS: ATORVASTATIN 40 MG TABLET 80 MG PO (21:15)
[2021-01-29] MEDS: IBUPROFEN 400 MG TABLET 800 MG PO (21:16)
[2021-01-29 21:23] LABS: Glucose Point of Care 120 mg/dl (65-105)
[2021-01-30] MEDS: LEVOTHYROXINE SODIUM 25 MCG TABLET PO (05:56)
[2021-01-30] MEDS: SODIUM CHLORIDE 0.9% IV 1,000 ML 100 ML IV CONT ×2 (05:58→18:40)
[2021-01-30 06:00] VITALS: BP 115/53; PULSE 60; RESP 20; TEMP 36.3; O2SAT 99
[2021-01-30] MEDS: traMADol HCL (*CRX) 50 MG TABLET 100 MG PO (06:00)
[2021-01-30 07:00] LABS: Estimated CRCL calculation 81 ml/min; Estimated Glomerular Filt Rate > 60
[2021-01-30 07:40] LABS: Glucose Point of Care 102 mg/dl (65-105)
[2021-01-30] MEDS: ENOXAPARIN 40 MG/0.4 ML SYRINGE SUB-Q (08:08)
[2021-01-30 08:09] VITALS: PULSE 75
[2021-01-30] MEDS: METOPROLOL TARTRATE 25 MG TABLET PO ×2 (08:09→20:33)
[2021-01-30] MEDS: GABAPENTIN 300 MG CAPSULE 600 MG PO ×4 (08:09→20:27)
[2021-01-30] MEDS: PANTOPRAZOLE 40 MG TABLET PO (08:09)
[2021-01-30] MEDS: LACTULOSE 20 GM/30 ML UDC 10 GM PO (08:10)
[2021-01-30] MEDS: CHOLECALCIFEROL 1,000 UNITS TABLET 5000 UNITS PO (08:10)
[2021-01-30] MEDS: ASPIRIN 81 MG ENTERIC TABLET PO (08:11)
[2021-01-30] MEDS: CITALOPRAM HYDROBROMIDE 10 MG TABLET PO (08:11)
[2021-01-30] MEDS: lisinopriL 20 MG TABLET 40 MG PO (08:11)
[2021-01-30 08:12] VITALS: RESP 20; O2SAT 100
--- NOTE | 2021-01-30 11:09 | PM.IMPN ---
Progress Note: A&P Assessment and Plan (1) Cellulitis of left lower leg: Code(s): L03.116 - Cellulitis of left lower limb Status: Acute (2) Diet-controlled type 2 diabetes mellitus: Code(s): E11.9 - Type 2 diabetes mellitus without complications Status: Acute Assessment and Plan: Left lower extremity cellulitis with failure of outpatient treatment evident fly elevated bilirubin, increasing CRP and fever. Blood cultures are pending. (Blood cultures were drawn after antibiotic therapy.) Continue empiric antibiotic therapy with Primaxin and vancomycin. CBC and CMP have been ordered for a.m.. Diet-controlled diabetes mellitus (historically well controlled with hemoglobin A1c of 4.9). Patient is euglycemic. Will continue consistent carbohydrate diet will place patient on low-dose sliding scale insulin with Accu-Cheks a.c. HS and hypoglycemia protocol. Patient has been admitted as observation status. Additional Plan 01/29/21 afebrile WBCs WNL cont ADA diet cont NS 100cc /hr cont abx vanco/ imipenem BG goal accuchecks w LD ISS as needed 01/30/21 pt slowly improving lactulose daily for hyperammonemia and PRN x constipation erythema still present improve pain control w PO oxycodone morphine for breakthrough pain magnesium 2G x goal 2.0 cont current care Subjective Date/time seen: 01/30/21 11:09 feeling better but reports throbbing pain in LLE and ongoing nightime febrile episodes (until last night) Exam Narrative: PHYSICAL EXAM: General: nontoxic appearing well-developed, obese HEENT: Mucous membranes are moist, no oral pharyngeal erythema, no scleral icterus Respiratory: symmetric chest rise, no increased work of breathing Gastrointestinal: Distended, nontender, soft, globose Skin: Marked erythema to the left medial and anterior ellis, ulcers of the left foot and toes covered at time of my PE Musculoskeletal: Deformity of the left foot with lateral deviation of all the toes, ulcer to the base of the 1st metatarsal Neurological: Alert and oriented, speech is clear, no facial asymmetry Psychiatric: Appropriate mood and affect, pleasant and cooperative Objective Data Vital Signs Vital Signs: Vital Signs - 24 hr 01/29/21 16:00 01/29/21 21:16 01/29/21 22:00 Temperature 98.4 F 99.9 F H 99.9 F H Pulse Rate 74 74 89 Respiratory Rate 20 20 Blood Pressure 122/62 144/69 H Pulse Oximetry 99 99 01/29/21 22:16 01/30/21 06:00 01/30/21 08:09 Temperature 98.1 F 97.4 F L Pulse Rate 60 75 Respiratory Rate 20 Blood Pressure 115/53 L Pulse Oximetry 99 01/30/21 08:12 Temperature Pulse Rate Respiratory Rate 20 Blood Pressure Pulse Oximetry 100 Intake/Output Intake/Output: Intake & Output 01/27/21 01/28/21 01/29/21 01/30/21 23:59 23:59 23:59 23:59 Intake Total 1600 4320 2200 Balance 1600 4320 2200 Meds/Results Medications: Active Medications Generic Name Dose Route Start Last Admin Trade Name Freq PRN Reason Stop Dose Admin Aspirin 81 mg 01/29/21 09:00 01/30/21 08:11 Aspirin 81 Mg Enteric Tablet PO 81 mg DAILY PAULA Administration Atorvastatin Calcium 80 mg 01/28/21 23:15 01/29/21 21:15 Atorvastatin 40 Mg Tablet PO 80 mg HS PAULA Administration Citalopram Hydrobromide 10 mg 01/29/21 09:00 01/30/21 08:11 Citalopram Hydrobromide 10 Mg Tablet PO 10 mg DAILY PAULA Administration Dextrose 12.5 gm 01/28/21 20:05 Dextrose 50% 25 Gm/50 Ml Syringe IV PUSH PRN PRN Hypoglycemia Protocol Enoxaparin Sodium 40 mg 01/29/21 09:00 01/30/21 08:08 Enoxaparin 40 Mg/0.4 Ml Syringe SUB-Q 40 mg DAILY PAULA Administration Gabapentin 600 mg 01/28/21 23:15 01/30/21 08:09 Gabapentin 300 Mg Capsule PO 600 mg QID PAULA Administration Glucagon 1 mg 01/28/21 20:05 Glucagon For Inj 1 Mg Vial IM PRN PRN Hypoglycemia Protocol Glucose 15 gm 01/28/21 20:05 Glucose Oral Gel
[2021-01-30 11:43] LABS: Glucose Point of Care 123 mg/dl (65-105)
[2021-01-30 14:00] VITALS: BP 129/60; PULSE 67; RESP 18; TEMP 36.9; O2SAT 99
[2021-01-30] MEDS: IBUPROFEN 400 MG TABLET 800 MG PO (16:23)
[2021-01-30] MEDS: MAGNESIUM SULF 2 GM/WATER 50ML 2 GM/50 ML BAG IVPB (16:25)
[2021-01-30] MEDS: TAMSULOSIN HCL 0.4 MG CAPSULE PO (16:26)
[2021-01-30 16:39] LABS: Glucose Point of Care 86 mg/dl (65-105)
[2021-01-30 19:47] LABS: Vancomycin Trough 16.5 ug/mL (10.0-20.0)
[2021-01-30] MEDS: ATORVASTATIN 40 MG TABLET 80 MG PO (20:27)
[2021-01-30 20:33] VITALS: PULSE 64
[2021-01-30 20:34] VITALS: BP 129/58; PULSE 64; RESP 17; TEMP 36.4; O2SAT 99
[2021-01-31] VITALS (8 sets, daily range): BP systolic 117–156; BP diastolic 54–70; PULSE 66–73; RESP 16–18; TEMP 36.3–37.1; O2SAT 97–99
[2021-01-31 00:24] LABS: Glucose Point of Care 104 mg/dl (65-105)
[2021-01-31 05:20] LABS: Basophils Percent Auto 0.6 % (0.2-1.2); Eosinophils Absolute Auto 0.2 K/mm3 (0-0.3); Eosinophils Percent Auto 4.8 % (0-4.4); Hematocrit 30.2 % (42.0-52.0); Immature Granulocyte Absolute 0.02 K/mm3 (0.00-0.031); Immature Granulocyte Percent A 0.6 % (0-0.5); Immature Platelet Fraction Pct 7.8 % (0.9-11.2); Lymphocytes Absolute Auto 0.34 K/mm3 (0.9-3.2); Lymphocytes Percent Auto 9.7 % (18.3-44.2); Mean Corpuscular HGB Conc 33.1 g/dl (32-36); Mean Corpuscular Hemoglobin 30.8 pg (26-34); Mean Corpuscular Volume 92.9 fl (80-100); Mean Platelet Volume 11.7 fl (7.4-10.4); Monocytes Absolute Auto 0.4 K/mm3 (0.1-0.6); Neutrophils Absolute Auto 2.5 K/mm3 (1.3-6.7); Neutrophils Percent Auto 72.3 % (45.5-73.1); Platelet Count Result 87 k/mm3 (150-375); Red Blood Count 3.25 M/mm3 (4.6-6.20); Red Cell Distribution Width 12.8 % (11.5-14.5); White Blood Count 3.5 K/mm3 (4.5-10.0)
[2021-01-31 05:37] LABS: Anion Gap 5 mmol/L (8-16); Blood Urea Nitrogen 12 mg/dL (9-20); Calcium 8.3 mg/dL (8.4-10.2); Carbon Dioxide 30 mmol/L (22-30); Chloride 102 mmol/L (98-107); Estimated CRCL calculation 89 ml/min; Estimated Glomerular Filt Rate > 60; Glucose 113 mg/dL (65-110); Magnesium 1.9 mg/dL (1.6-2.3); Sodium 137 mmol/L (137-145)
[2021-01-31] MEDS: LEVOTHYROXINE SODIUM 25 MCG TABLET PO (05:55)
[2021-01-31 07:47] LABS: Glucose Point of Care 100 mg/dl (65-105)
[2021-01-31] MEDS: GABAPENTIN 300 MG CAPSULE 600 MG PO ×4 (08:31→20:36)
[2021-01-31] MEDS: CITALOPRAM HYDROBROMIDE 10 MG TABLET PO (08:31)
[2021-01-31] MEDS: LACTULOSE 20 GM/30 ML UDC 10 GM PO (08:31)
[2021-01-31] MEDS: lisinopriL 20 MG TABLET 40 MG PO (08:32)
[2021-01-31] MEDS: METOPROLOL TARTRATE 25 MG TABLET PO ×2 (08:32→20:36)
[2021-01-31] MEDS: CHOLECALCIFEROL 1,000 UNITS TABLET 5000 UNITS PO (08:32)
[2021-01-31] MEDS: PANTOPRAZOLE 40 MG TABLET PO (08:32)
[2021-01-31] MEDS: ASPIRIN 81 MG ENTERIC TABLET PO (08:32)
--- NOTE | 2021-01-31 11:23 | PM.IMPN ---
Progress Note: A&P Assessment and Plan (1) Cellulitis of left lower leg: Code(s): L03.116 - Cellulitis of left lower limb Status: Acute Assessment and Plan: Continue IV primaxin DC vanc cellulitis resolving. DC in 1-2 days time (2) Diet-controlled type 2 diabetes mellitus: Code(s): E11.9 - Type 2 diabetes mellitus without complications Status: Acute Assessment and Plan: Left lower extremity cellulitis with failure of outpatient treatment DC vancomycin BC are negative continue primaxin Diet-controlled diabetes mellitus (historically well controlled with hemoglobin A1c of 4.9). Continue consistent carbohydrate diet will place patient on low-dose sliding scale insulin with Accu-Cheks a.c. HS and hypoglycemia protocol. Patient has been admitted as observation status. Subjective Date/time seen: 01/31/21 11:23 Interval history: 60-year-old male with past medical history of diet-controlled diabetes, alcoholic cirrhosis, hepatocellular carcinoma status post ablation x3, diabetic peripheral neuropathy, chronic foot wound to presented to the ER with recurrence of left lower extremity cellulitis. Pt leg is improving sugars are doing well. Hopeful dc in 1-2 days time. Review of Systems Review of Systems: All systems reviewed & are unremarkable except as noted in HPI and below Exam Narrative: PHYSICAL EXAM: General: Obese HEENT: Mucous membranes are moist, no oral pharyngeal erythema, no scleral icterus Respiratory: Clear lung robles Gastrointestinal: Distended, nontender, soft Skin: Marked erythema to the left medial and anterior ellis Musculoskeletal: Deformity of the left foot with lateral deviation of all the toes, ulcer to the base of the 1st metatarsal with dressing Neurological: Alert and oriented, speech is clear, no facial asymmetry Psychiatric: Appropriate mood and affect, pleasant and cooperative Objective Data Vital Signs Vital Signs: Vital Signs - 24 hr 01/30/21 14:00 01/30/21 20:33 01/30/21 20:34 Temperature 36.9 C 36.4 C L Pulse Rate 67 64 64 Respiratory Rate 18 17 Blood Pressure 129/60 129/58 L Pulse Oximetry 99 99 01/31/21 04:22 01/31/21 08:29 01/31/21 08:32 Temperature 36.3 C L Pulse Rate 67 70 70 Respiratory Rate 18 16 Blood Pressure 133/61 117/54 L Pulse Oximetry 99 01/31/21 09:57 Temperature Pulse Rate Respiratory Rate Blood Pressure Pulse Oximetry 97 Intake/Output Intake/Output: Intake & Output 01/28/21 01/29/21 01/30/21 01/31/21 23:59 23:59 23:59 23:59 Intake Total 1600 4320 5550 1520 Output Total 2050 Balance 1600 4320 5550 -530 Meds/Results Medications: Active Medications Generic Name Dose Route Start Last Admin Trade Name Freq PRN Reason Stop Dose Admin Aspirin 81 mg 01/29/21 09:00 01/31/21 08:32 Aspirin 81 Mg Enteric Tablet PO 81 mg DAILY PAULA Administration Atorvastatin Calcium 80 mg 01/28/21 23:15 01/30/21 20:27 Atorvastatin 40 Mg Tablet PO 80 mg HS PAULA Administration Citalopram Hydrobromide 10 mg 01/29/21 09:00 01/31/21 08:31 Citalopram Hydrobromide 10 Mg Tablet PO 10 mg DAILY PAULA Administration Dextrose 12.5 gm 01/28/21 20:05 Dextrose 50% 25 Gm/50 Ml Syringe IV PUSH PRN PRN Hypoglycemia Protocol Enoxaparin Sodium 40 mg 01/29/21 09:00 01/31/21 10:31 Enoxaparin 40 Mg/0.4 Ml Syringe SUB-Q Not Given DAILY PAULA Gabapentin 600 mg 01/28/21 23:15 01/31/21 08:31 Gabapentin 300 Mg Capsule PO 600 mg QID PAULA Administration Glucagon 1 mg 01/28/21 20:05 Glucagon For Inj 1 Mg Vial IM PRN PRN Hypoglycemia Protocol Glucose 15 gm 01/28/21 20:05 Glucose Oral Gel 15 Gm Of Glucse In 37.5 Gm Tube PO PRN PRN Hypoglycemia Protocol Imipenem/Cilastatin Sodium 500 mg in 100 mls @ 300 mls/hr 01/29/21 01:00 01/31/21 05:56 Primaxin 500 Mg/D5w 100 Ml IVPB 100 mls/hr Q6HR PAULA Administration Dex
[2021-01-31 11:49] LABS: Glucose Point of Care 104 mg/dl (65-105)
[2021-01-31] MEDS: oxyCODONE HCL (*CRX) 5 MG TAB IR PO ×3 (11:51→21:28)
[2021-01-31 16:28] LABS: Glucose Point of Care 110 mg/dl (65-105)
[2021-01-31] MEDS: TAMSULOSIN HCL 0.4 MG CAPSULE PO (17:02)
[2021-01-31] MEDS: ATORVASTATIN 40 MG TABLET 80 MG PO (20:36)
[2021-01-31 20:41] LABS: Glucose Point of Care 109 mg/dl (65-105)
[2021-02-01 03:33] VITALS: BP 115/49; PULSE 67; RESP 17; TEMP 36.4; O2SAT 99
[2021-02-01] MEDS: oxyCODONE HCL (*CRX) 5 MG TAB IR PO ×3 (05:46→20:20)
[2021-02-01] MEDS: LEVOTHYROXINE SODIUM 25 MCG TABLET PO (05:47)
[2021-02-01 06:18] LABS: Estimated CRCL calculation 89 ml/min; Estimated Glomerular Filt Rate > 60
[2021-02-01 06:53] LABS: Glucose Point of Care 103 mg/dl (65-105)
[2021-02-01] MEDS: LACTULOSE 20 GM/30 ML UDC 10 GM PO (09:13)
[2021-02-01] MEDS: ASPIRIN 81 MG ENTERIC TABLET PO (09:13)
[2021-02-01] MEDS: GABAPENTIN 300 MG CAPSULE 600 MG PO ×4 (09:13→20:20)
[2021-02-01] MEDS: lisinopriL 20 MG TABLET 40 MG PO (09:13)
[2021-02-01] MEDS: CHOLECALCIFEROL 1,000 UNITS TABLET 5000 UNITS PO (09:13)
[2021-02-01] MEDS: CITALOPRAM HYDROBROMIDE 10 MG TABLET PO (09:14)
[2021-02-01] MEDS: PANTOPRAZOLE 40 MG TABLET PO (09:14)
[2021-02-01] MEDS: METOPROLOL TARTRATE 25 MG TABLET PO ×2 (09:14→20:20)
[2021-02-01 12:03] LABS: Glucose Point of Care 116 mg/dl (65-105)
--- NOTE | 2021-02-01 12:18 | PM.IMPN ---
Progress Note: A&P Assessment and Plan (1) Cellulitis of left lower leg: Code(s): L03.116 - Cellulitis of left lower limb Status: Acute Assessment and Plan: Continue IV primaxin DC vanc cellulitis resolving. DC in 1-2 days time (2) Diet-controlled type 2 diabetes mellitus: Code(s): E11.9 - Type 2 diabetes mellitus without complications Status: Acute Assessment and Plan: Left lower extremity cellulitis with failure of outpatient treatment DC vancomycin BC are negative continue primaxin Diet-controlled diabetes mellitus (historically well controlled with hemoglobin A1c of 4.9). Continue consistent carbohydrate diet will place patient on low-dose sliding scale insulin with Accu-Cheks a.c. HS and hypoglycemia protocol. Patient has been admitted as observation status. Additional Plan 01/29/21 afebrile WBCs WNL cont ADA diet cont NS 100cc /hr cont abx vanco/ imipenem BG goal accuchecks w LD ISS as needed 01/30/21 pt slowly improving lactulose daily for hyperammonemia and PRN x constipation erythema still present improve pain control w PO oxycodone morphine for breakthrough pain magnesium 2G x goal 2.0 cont current care 02/01 patient still complains swelling along his left foot and erythema, patient states he has been elevating the foot could, patient is encouraged to keep the foot elevated, patient with history alcoholic cirrhosis with hepatocellular carcinoma, patient is on lactulose, will monitor ammonia level, will have a PT OT continue with the patient, is patient tomorrow and further recommendation to follow. Subjective Date/time seen: 02/01/21 12:18 Interval history: 60-year-old male with past medical history of diet-controlled diabetes, alcoholic cirrhosis, hepatocellular carcinoma status post ablation x3, diabetic peripheral neuropathy, chronic foot wound to presented to the ER with recurrence of left lower extremity cellulitis. Pt leg is improving sugars are doing well. Hopeful dc in 1-2 days time. 02/01 patient still complains swelling along his left foot and erythema, patient states he has been elevating the foot could, patient is encouraged to keep the foot elevated, patient with history alcoholic cirrhosis with hepatocellular carcinoma, patient is on lactulose, will monitor ammonia level, will have a PT OT continue with the patient, is patient tomorrow and further recommendation to follow. Review of Systems Review of Systems: All systems reviewed & are unremarkable except as noted in HPI and below Exam Narrative: Patient is comfortable, NAD HEENT: eyes are clear and none icteric LUNGS: normal respiratory effort ABD: distended Lower extremities: left foot erthmatous and edemoatous, SKIN: nonjaundiced Neuro: grossly intact. Objective Data Vital Signs Vital Signs: Vital Signs - 24 hr 01/31/21 14:57 01/31/21 19:58 01/31/21 20:00 Temperature 98.8 F 98.7 F Pulse Rate 66 73 73 Respiratory Rate 18 17 17 Blood Pressure 134/62 156/70 H Pulse Oximetry 99 99 99 01/31/21 20:36 02/01/21 03:33 Temperature 97.5 F L Pulse Rate 73 67 Respiratory Rate 17 Blood Pressure 115/49 L Pulse Oximetry 99 Intake/Output Intake/Output: Intake & Output 01/29/21 01/30/21 01/31/21 02/01/21 23:59 23:59 23:59 23:59 Intake Total 4320 5550 4150 1780 Output Total 2650 1600 Balance 4320 5550 1500 180 Meds/Results Medications: Active Medications Generic Name Dose Route Start Last Admin Trade Name Freq PRN Reason Stop Dose Admin Aspirin 81 mg 01/29/21 09:00 02/01/21 09:13 Aspirin 81 Mg Enteric Tablet PO 81 mg DAILY PAULA Administration Atorvastatin Calcium 80 mg 01/28/21 23:15 01/31/21 20:36 Atorvastatin 40 Mg Tablet PO 80 mg HS PAULA Administration Citalopram Hydrobromide 10 mg 01/29/21 09:00 02/01/21 09:14 Citalopram Hydrobromide 10 Mg Tablet PO 10 mg DAILY PAULA Administration Dextrose 12.5 gm 01/28/21 20:05
[2021-02-01 13:08] LABS: Hematocrit 31.6 % (42.0-52.0); Hemoglobin 10.5 g/dL (14.0-18.0); Mean Corpuscular HGB Conc 33.2 g/dl (32-36); Mean Corpuscular Hemoglobin 30.3 pg (26-34); Mean Corpuscular Volume 91.1 fl (80-100); Mean Platelet Volume 11.4 fl (7.4-10.4); Platelet Count Result 95 k/mm3 (150-375); Red Blood Count 3.47 M/mm3 (4.6-6.20); Red Cell Distribution Width 12.7 % (11.5-14.5); White Blood Count 3.3 K/mm3 (4.5-10.0)
[2021-02-01 13:25] LABS: Ammonia < 9 umol/L (9-30)
[2021-02-01 14:17] VITALS: BP 132/57; PULSE 62; RESP 17; TEMP 36.7; O2SAT 100
--- NOTE | 2021-02-01 14:33 | PC.NURSE ---
On 02/01/21, the student, Yvonne Roberts, provided care and [facility] this patient. I have reviewed the student's documentation and agree with the findings.
[2021-02-01 16:39] LABS: Glucose Point of Care 92 mg/dl (65-105)
[2021-02-01] MEDS: TAMSULOSIN HCL 0.4 MG CAPSULE PO (18:01)
[2021-02-01 20:00] VITALS: PULSE 63; RESP 17; O2SAT 100
[2021-02-01] MEDS: ATORVASTATIN 40 MG TABLET 80 MG PO (20:19)
[2021-02-01 20:20] VITALS: PULSE 63
[2021-02-01 21:11] LABS: Glucose Point of Care 108 mg/dl (65-105)
[2021-02-01 22:00] VITALS: BP 135/63; PULSE 63; RESP 20; TEMP 36.7; O2SAT 99
[2021-02-02 03:31] VITALS: BP 90/37; PULSE 65; RESP 16; TEMP 36.6; O2SAT 95
[2021-02-02] MEDS: LEVOTHYROXINE SODIUM 25 MCG TABLET PO (05:51)
[2021-02-02] MEDS: oxyCODONE HCL (*CRX) 5 MG TAB IR PO ×2 (05:51→13:26)
[2021-02-02 05:52] LABS: Hematocrit 30.3 % (42.0-52.0); Hemoglobin 10.3 g/dL (14.0-18.0); Mean Corpuscular Hemoglobin 30.2 pg (26-34); Mean Corpuscular Volume 88.9 fl (80-100); Platelet Count Result 95 k/mm3 (150-375); Red Blood Count 3.41 M/mm3 (4.6-6.20); Red Cell Distribution Width 12.3 % (11.5-14.5); White Blood Count 3.1 K/mm3 (4.5-10.0)
[2021-02-02 05:59] LABS: Alanine Aminotransferase 16 U/L (4-50); Albumin Level 2.9 g/dL (3.5-5.1); Alkaline Phosphatase 73 U/L (38-126); Anion Gap 2 mmol/L (8-16); Aspartate Amino Transferase 22 U/L (17-59); Bilirubin,Total 0.5 mg/dL (0.2-1.3); Blood Urea Nitrogen 13 mg/dL (9-20); Calcium 8.5 mg/dL (8.4-10.2); Carbon Dioxide 32 mmol/L (22-30); Chloride 99 mmol/L (98-107); Estimated CRCL calculation 81 ml/min; Estimated Glomerular Filt Rate > 60; Glucose 126 mg/dL (65-110); Magnesium 1.7 mg/dL (1.6-2.3); Potassium 3.7 mmol/L (3.4-5.0); Sodium 133 mmol/L (137-145)
[2021-02-02 06:47] LABS: Glucose Point of Care 113 mg/dl (65-105)
[2021-02-02 08:27] VITALS: RESP 16; O2SAT 97
[2021-02-02 09:17] VITALS: BP 123/54; PULSE 67; RESP 16; TEMP 36.4; O2SAT 99
[2021-02-02] MEDS: ASPIRIN 81 MG ENTERIC TABLET PO (09:46)
[2021-02-02] MEDS: CHOLECALCIFEROL 1,000 UNITS TABLET 5000 UNITS PO (09:48)
[2021-02-02] MEDS: CITALOPRAM HYDROBROMIDE 10 MG TABLET PO (09:50)
[2021-02-02] MEDS: lisinopriL 20 MG TABLET 40 MG PO (09:52)
[2021-02-02 09:54] VITALS: PULSE 67
[2021-02-02] MEDS: METOPROLOL TARTRATE 25 MG TABLET PO (09:54)
[2021-02-02] MEDS: GABAPENTIN 300 MG CAPSULE 600 MG PO ×2 (09:55→12:36)
[2021-02-02] MEDS: PANTOPRAZOLE 40 MG TABLET PO (09:55)
[2021-02-02] MEDS: LACTULOSE 20 GM/30 ML UDC 10 GM PO (09:58)
[2021-02-02 11:44] LABS: Glucose Point of Care 106 mg/dl (65-105)
--- NOTE | 2021-02-02 11:58 | PM.DS ---
DS: Admitting Diagnosis Discharge Date 02/02/2021 Admitting Diagnosis Left leg cellulitis DS: Discharge Diagnosis Discharge Diagnosis (1) Cellulitis of left lower leg: Code(s): L03.116 - Cellulitis of left lower limb Status: Acute Assessment and Plan: Continue IV primaxin DC vanc cellulitis resolving. DC in 1-2 days time (2) Diet-controlled type 2 diabetes mellitus: Code(s): E11.9 - Type 2 diabetes mellitus without complications Status: Acute Assessment and Plan: Left lower extremity cellulitis with failure of outpatient treatment DC vancomycin BC are negative continue primaxin Diet-controlled diabetes mellitus (historically well controlled with hemoglobin A1c of 4.9). Continue consistent carbohydrate diet will place patient on low-dose sliding scale insulin with Accu-Cheks a.c. HS and hypoglycemia protocol. Patient has been admitted as observation status. DS: Summary Hospital Course Reason for hospitalization: Left leg cellulitis Hospital Course: Patient's cellulitis is improved, blood sugars are controlled is clinically stable will discharge the patient today Patient to follow wound care instruction and follow up at wound care clinica as scheduled, patient to follow up with his primary care provider as soon as possible, patient is instructed, if any symptoms redevelop to go to nearest ER. patient is instructed to keep his left foot elevated when possible. Status at Discharge Functional status at discharge: uses cane/walker Overall status at discharge: patient is back to baseline Time Spent with Patient Time attestation: Total time spent providing and/or coordinating discharge services: Time spent: Greater than 30 minutes Exam Narrative: Patient is comfortable, NAD HEENT: eyes are clear and none icteric LUNGS: normal respiratory effort ABD: distended Lower extremities: left foot erthmatous and edemoatous, SKIN: nonjaundiced Neuro: grossly intact. DS: Data Data Completed and Pending Labs on day of discharge: Labs from last 24 hours 02/02/21 02/02/21 02/02/21 11:41 06:40 05:26 WBC RBC Hgb Hct MCV MCH MCHC RDW Plt Count MPV Sodium 133 L Potassium 3.7 Chloride 99 Carbon Dioxide 32 H Anion Gap 2 L BUN 13 Creatinine 1.10 Estim Creat Clear Calc 81 Estimated GFR > 60 Glucose 126 H POC Capillary Glucose 106 H 113 H Calcium 8.5 Magnesium 1.7 Total Bilirubin 0.5 AST 22 ALT 16 Alkaline Phosphatase 73 Ammonia Total Protein 6.0 L Albumin 2.9 L 02/02/21 02/01/21 02/01/21 05:26 20:19 16:34 WBC 3.1 L RBC 3.41 L Hgb 10.3 L Hct 30.3 L MCV 88.9 MCH 30.2 MCHC 34.0 RDW 12.3 Plt Count 95 L MPV 12.0 H Sodium Potassium Chloride Carbon Dioxide Anion Gap BUN Creatinine Estim Creat Clear Calc Estimated GFR Glucose POC Capillary Glucose 108 H 92 Calcium Magnesium Total Bilirubin AST ALT Alkaline Phosphatase Ammonia Total Protein Albumin 02/01/21 02/01/21 02/01/21 13:00 13:00 11:58 WBC 3.3 L RBC 3.47 L Hgb 10.5 L Hct 31.6 L MCV 91.1 MCH 30.3 MCHC 33.2 RDW 12.7 Plt Count 95 L MPV 11.4 H Sodium Potassium Chloride Carbon Dioxide Anion Gap BUN Creatinine Estim Creat Clear Calc Estimated GFR Glucose POC Capillary Glucose 116 H Calcium Magnesium Total Bilirubin AST ALT Alkaline Phosphatase Ammonia < 9 L Total Protein Albumin Preliminary micro results at discharge 01/28/21 20:47 Blood Culture - Preliminary Blood 01/28/21 20:41 Blood Culture - Preliminary Blood Discharge Plan Discharge Attending physician on discharge: Miranda Navarro Consulting providers: Say Jacobson ; Lauren Frances ; Tasha Caballero Discharging Clinician: Ramon
--- NOTE | 2021-02-02 15:13 | PC.NURSE ---
On 02/02/21, the student, [Lita], provided care and completed [employer] documentation on this patient. I have reviewed the student's documentation and agree with the findings.
== END 2021-02-02 14:15 | disposition home or self-care (01) | DRG 383 ==
LOC: ANHED 19:16 → ANH2MED 20:13
PROVIDERS: Emergency Medicine; Hospitalist; Physician Assistant; Admitting Provider Internal Medicine; Emergency Provider Emergency Medicine; PCP Family Medicine; Visit Provider Family Medicine
DX: L03.116 Cellulitis of left lower limb (principal); I25.10 Atherosclerotic heart disease of native coronary artery without angina pectoris; E11.42 Type 2 diabetes mellitus with diabetic polyneuropathy; E11.65 Type 2 diabetes mellitus with hyperglycemia; K70.30 Alcoholic cirrhosis of liver without ascites; F10.21 Alcohol dependence, in remission; E78.5 Hyperlipidemia, unspecified; N40.0 Benign prostatic hyperplasia without lower urinary tract symptoms; E03.9 Hypothyroidism, unspecified; Z79.82 Long term (current) use of aspirin; Z79.899 Other long term (current) drug therapy; Z85.05 Personal history of malignant neoplasm of liver; Z86.73 Personal history of transient ischemic attack (TIA), and cerebral infarction without residual deficits
CPT/HCPCS: 36415; 73630; 80048; 80053; 80202; 82140; 82565; 82948; 83605; 83735; 85025; 85027; 85055; 86140; 87040; 93971; 96361; 96365; 96366; 96367; 96375; 96376; 97165; 99285; A9270; G0378; G0379; J0743; J1650; J2270; J3370; J3475; J7030; J7040

== ENCOUNTER 2022-03-24 07:51 | Outpatient (RCR) | payer OTHER, SELFPAY ==
[2022-01-04 09:00] VITALS: BMI 34.3
== END 2022-04-04 23:59 | disposition home or self-care (01) ==
LOC: ANHWOC 07:51
PROVIDERS: PCP Family Medicine; Visit Provider Family Medicine
DX: S91.302D Unspecified open wound, left foot, subsequent encounter (principal)
CPT/HCPCS: 99213; G0463

== ENCOUNTER 2022-05-10 07:27 | Outpatient (RCR) | payer OTHER, SELFPAY ==
[2022-04-05 00:03] VITALS: BMI 34.3
== END 2022-06-19 08:15 | disposition home or self-care (01) ==
LOC: ANHWOC 07:27
PROVIDERS: PCP Family Medicine; Visit Provider Family Medicine
DX: S91.302D Unspecified open wound, left foot, subsequent encounter (principal)
CPT/HCPCS: 99212; 99213; G0463